=== PATIENT | male | born 1960 | race Caucasian/White ===

== ENCOUNTER 2016-11-02 19:28 | Observation (INO) | payer MEDICARE ==
[~2016-11-02] VITALS: Ht 182.9 cm; Wt 84.0 kg
[~2016-11-02 19:28] MED LIST: ALBU2.5V11 INH; ALBU8.5H5 INH; AMLO5TAB4 PO; ARIP10TA33 PO; ASPI-515 PO; DULO60CA7 PO; FLUT250D INJ; LAMO200T3 PO; LISI40TA PO; LORA-446 PO; METF-163 PO; QUET25TA5 PO; SIMV40TA3 PO; SITA100T PO
[2016-11-02] MEDS ORDERED: LORazepam 1MG TABLET PO ONE (20:00)
[2016-11-02] MEDS ORDERED: LORazepam 1MG TABLET ONE (20:02)
[2016-11-02 20:29] LABS: HEMATOCRIT 40.7 % (39.2-51.8); HEMOGLOBIN 13.7 g/dL (13.7-18.0); WHITE BLOOD COUNT 14.1 x10^3/uL (3.4-10)
[2016-11-02 20:39] LABS: DIFF TOTAL CELLS COUNTED 100 CELL DIFF
[2016-11-02 20:40] LABS: BLOOD UREA NITROGEN 9 mg/dL (7-18)
[2016-11-02 20:43] LABS: ACETAMINOPHEN < 2 mcg/mL (10-30); ASPARTATE AMINO TRANSFERASE 50 U/L (15-37)
[2016-11-02 20:45] LABS: DAU SCREEN DISCLAIMER
[2016-11-02] MEDS ORDERED: METOCLOPRAMIDE 10MG TABLET PO PRN (21:00)
[2016-11-02 21:06] LABS: VERIFY COUNTS? YES
[2016-11-02] MEDS ORDERED: KETOROLAC 30 MG/1 ML ONE (21:23)
[2016-11-02] MEDS ORDERED: POTASSIUM CHLORIDE 20 MEQ TAB.ER.PRT ONE (21:23)
[2016-11-02] MEDS ORDERED: POTASSIUM CHLORIDE 20 MEQ TAB.ER.PRT PO ONE (21:30)
[2016-11-02] MEDS ORDERED: KETOROLAC 30 MG/1 ML IM ONE (21:30)
[2016-11-02 21:49] LABS: PATH.CAST-FLAG NOT PRESENT; SPERM-FLAG NOT PRESENT; SRC-FLAG NOT PRESENT; XTAL-FLAG NOT PRESENT; YLC-FLAG NOT PRESENT
[2016-11-03] MEDS ORDERED: LORazepam 1MG TABLET PO SCH (05:00)
[2016-11-03 05:41] VITALS: BP 131/83
[2016-11-03] MEDS ORDERED: [UNRECOGNIZED DRUG - REMARK] MC SCH (06:00)
[2016-11-03] MEDS: INSULIN ASPART 100 UNITS/ML, PEN SQ-INSULIN SCH ×4 (07:30→20:33)
[2016-11-03 08:00] VITALS: BP 117/71
[2016-11-03] MEDS: metFORMIN 500 MG TABLET PO SCH ×2 (09:07→20:29)
[2016-11-03] MEDS: ASPIRIN 81 MG TABLET EC PO SCH (09:07)
[2016-11-03] MEDS: AMLODIPINE 5 MG TABLET PO SCH (09:07)
[2016-11-03] MEDS: LAMOTRIGINE 200 MG TABLET PO SCH (09:07)
[2016-11-03] MEDS: LISINOPRIL 20 MG TABLET PO SCH (09:07)
[2016-11-03] MEDS: QUETIAPINE 25MG TABLET PO SCH ×4 (09:08→20:29)
[2016-11-03] MEDS: DULOXETINE 30 MG CAPSULE.DR PO SCH (09:08)
[2016-11-03] MEDS: SIMVASTATIN 40 MG TABLET PO SCH (17:58)
[2016-11-03 20:00] VITALS: BP 103/64
[2016-11-03] MEDS: HEPARIN 5,000 UNITS/ML, 1ML SQ SCH (21:00)
[2016-11-04] MEDS ORDERED: LORazepam 1MG TABLET PO PRN (05:00)
[2016-11-04] MEDS: INSULIN ASPART 100 UNITS/ML, PEN SQ-INSULIN SCH ×2 (07:00→10:44)
[2016-11-04 07:47] VITALS: BP 119/74
[2016-11-04] MEDS: metFORMIN 500 MG TABLET PO SCH ×2 (08:26→20:20)
[2016-11-04] MEDS: AMLODIPINE 5 MG TABLET PO SCH (08:27)
[2016-11-04] MEDS: ASPIRIN 81 MG TABLET EC PO SCH (08:27)
[2016-11-04] MEDS: LAMOTRIGINE 200 MG TABLET PO SCH (08:27)
[2016-11-04] MEDS: LISINOPRIL 20 MG TABLET PO SCH (08:27)
[2016-11-04] MEDS: HEPARIN 5,000 UNITS/ML, 1ML SQ SCH ×2 (08:30→20:20)
[2016-11-04] MEDS: QUETIAPINE 25MG TABLET PO SCH ×3 (08:30→20:20)
[2016-11-04] MEDS: DULOXETINE 30 MG CAPSULE.DR PO SCH (08:30)
[2016-11-04] MEDS: SIMVASTATIN 40 MG TABLET PO SCH (17:04)
[2016-11-04 19:43] VITALS: BP 131/77
[2016-11-05 07:45] VITALS: BP 133/75
[2016-11-05] MEDS: ASPIRIN 81 MG TABLET EC PO SCH (08:13)
[2016-11-05] MEDS: metFORMIN 500 MG TABLET PO SCH ×2 (08:13→21:00)
[2016-11-05] MEDS: AMLODIPINE 5 MG TABLET PO SCH (08:13)
[2016-11-05] MEDS: LAMOTRIGINE 200 MG TABLET PO SCH (08:13)
[2016-11-05] MEDS: DULOXETINE 30 MG CAPSULE.DR PO SCH (08:14)
[2016-11-05] MEDS: LISINOPRIL 20 MG TABLET PO SCH (08:14)
[2016-11-05] MEDS: QUETIAPINE 25MG TABLET PO SCH ×3 (08:16→21:00)
[2016-11-05] MEDS: HEPARIN 5,000 UNITS/ML, 1ML SQ SCH ×2 (08:17→21:00)
[2016-11-05] MEDS: SIMVASTATIN 40 MG TABLET PO SCH (17:05)
[2016-11-05 19:34] VITALS: BP 160/89
[2016-11-05] MEDS ORDERED: ALBUTEROL SULFATE 2.5 MG/3 ML NPPB PRN (21:00)
[2016-11-05] MEDS: ACETAMINOPHEN 325 MG TABLET PO PRN (21:00)
[2016-11-06 08:20] VITALS: BP 140/84
[2016-11-06] MEDS: metFORMIN 500 MG TABLET PO SCH ×2 (08:40→20:09)
[2016-11-06] MEDS: DULOXETINE 30 MG CAPSULE.DR PO SCH (08:40)
[2016-11-06] MEDS: ASPIRIN 81 MG TABLET EC PO SCH (08:40)
[2016-11-06] MEDS: LAMOTRIGINE 200 MG TABLET PO SCH (08:41)
[2016-11-06] MEDS: LISINOPRIL 20 MG TABLET PO SCH (08:41)
[2016-11-06] MEDS: AMLODIPINE 5 MG TABLET PO SCH (08:42)
[2016-11-06] MEDS: HEPARIN 5,000 UNITS/ML, 1ML SQ SCH ×2 (08:47→20:11)
[2016-11-06] MEDS: QUETIAPINE 25MG TABLET PO SCH ×3 (08:48→20:09)
[2016-11-06] MEDS: ACETAMINOPHEN 325 MG TABLET PO PRN (18:07)
[2016-11-06] MEDS: SIMVASTATIN 40 MG TABLET PO SCH (18:07)
[2016-11-06 20:00] VITALS: BP 134/78
[2016-11-07] MEDS: ACETAMINOPHEN 325 MG TABLET PO PRN ×2 (06:11→19:44)
[2016-11-07 07:38] VITALS: BP 133/76
[2016-11-07] MEDS: metFORMIN 500 MG TABLET PO SCH (08:55)
[2016-11-07] MEDS: LISINOPRIL 20 MG TABLET PO SCH (08:55)
[2016-11-07] MEDS: ASPIRIN 81 MG TABLET EC PO SCH (08:56)
[2016-11-07] MEDS: DULOXETINE 30 MG CAPSULE.DR PO SCH (08:56)
[2016-11-07] MEDS: AMLODIPINE 5 MG TABLET PO SCH (08:56)
[2016-11-07] MEDS: LAMOTRIGINE 200 MG TABLET PO SCH (08:56)
[2016-11-07] MEDS: TAMSULOSIN 0.4 MG CAP.ER.24H PO SCH (08:56)
[2016-11-07] MEDS: HEPARIN 5,000 UNITS/ML, 1ML SQ SCH ×2 (08:57→21:00)
[2016-11-07] MEDS: QUETIAPINE 25MG TABLET PO SCH ×3 (08:57→21:00)
[2016-11-07] MEDS: SIMVASTATIN 40 MG TABLET PO SCH (18:21)
[2016-11-07 19:22] VITALS: BP 133/80
[2016-11-08] MEDS: metFORMIN 500 MG TABLET PO SCH ×3 (01:13→21:23)
[2016-11-08 08:00] VITALS: BP 141/86
[2016-11-08] MEDS: DULOXETINE 30 MG CAPSULE.DR PO SCH (09:00)
[2016-11-08] MEDS: ASPIRIN 81 MG TABLET EC PO SCH (09:09)
[2016-11-08] MEDS: AMLODIPINE 5 MG TABLET PO SCH (09:10)
[2016-11-08] MEDS: LAMOTRIGINE 200 MG TABLET PO SCH (09:10)
[2016-11-08] MEDS: LISINOPRIL 20 MG TABLET PO SCH (09:11)
[2016-11-08] MEDS: HEPARIN 5,000 UNITS/ML, 1ML SQ SCH ×2 (09:16→21:00)
[2016-11-08] MEDS: QUETIAPINE 25MG TABLET PO SCH ×3 (09:17→21:22)
[2016-11-08] MEDS: TAMSULOSIN 0.4 MG CAP.ER.24H PO SCH (09:18)
[2016-11-08] MEDS: SIMVASTATIN 40 MG TABLET PO SCH (18:07)
[2016-11-08 19:45] VITALS: BP 135/71
[2016-11-09 08:00] VITALS: BP 147/88
[2016-11-09] MEDS: HEPARIN 5,000 UNITS/ML, 1ML SQ SCH ×2 (09:00→20:15)
[2016-11-09] MEDS: TAMSULOSIN 0.4 MG CAP.ER.24H PO SCH (09:00)
[2016-11-09] MEDS: QUETIAPINE 25MG TABLET PO SCH ×3 (09:00→20:13)
[2016-11-09] MEDS: ASPIRIN 81 MG TABLET EC PO SCH (09:26)
[2016-11-09] MEDS: DULOXETINE 30 MG CAPSULE.DR PO SCH (09:26)
[2016-11-09] MEDS: LISINOPRIL 20 MG TABLET PO SCH (09:26)
[2016-11-09] MEDS: LAMOTRIGINE 200 MG TABLET PO SCH (09:26)
[2016-11-09] MEDS: AMLODIPINE 5 MG TABLET PO SCH (09:26)
[2016-11-09] MEDS: metFORMIN 500 MG TABLET PO SCH ×2 (09:27→20:13)
[2016-11-09] MEDS ORDERED: FLU VACC QS2017-18 (36MOS+) UP/PF 0.5 ML IM-VACC ONE (16:00)
[2016-11-09] MEDS: SIMVASTATIN 40 MG TABLET PO SCH (17:32)
[2016-11-09 19:30] VITALS: BP 120/79
[2016-11-10 08:20] VITALS: BP 153/86
[2016-11-10] MEDS: HEPARIN 5,000 UNITS/ML, 1ML SQ SCH (09:00)
[2016-11-10] MEDS: QUETIAPINE 25MG TABLET PO SCH (09:00)
[2016-11-10] MEDS: DULOXETINE 30 MG CAPSULE.DR PO SCH (09:00)
[2016-11-10] MEDS: ASPIRIN 81 MG TABLET EC PO SCH (09:35)
[2016-11-10] MEDS: LAMOTRIGINE 200 MG TABLET PO SCH (09:35)
[2016-11-10] MEDS: AMLODIPINE 5 MG TABLET PO SCH (09:35)
[2016-11-10] MEDS: metFORMIN 500 MG TABLET PO SCH (09:36)
[2016-11-10] MEDS: LISINOPRIL 20 MG TABLET PO SCH (09:37)
[2016-11-10] MEDS: TAMSULOSIN 0.4 MG CAP.ER.24H PO SCH (09:37)
== END 2016-11-10 14:37 | disposition home or self-care (01) ==
LOC: ED 22:20 → INTOOBSV 11-03 04:54 → EDIP 11-03 04:54 → 3E 11-03 05:38
PROVIDERS: ADMIT Internal Medicine; ATTEND Internal Medicine
DX: R45.851 Suicidal ideations (principal); E87.6 Hypokalemia; J45.909 Unspecified asthma, uncomplicated; I10 Essential (primary) hypertension; E11.9 Type 2 diabetes mellitus without complications; F32.9 Major depressive disorder, single episode, unspecified; F20.9 Schizophrenia, unspecified; F22 Delusional disorders; F41.1 Generalized anxiety disorder
CPT/HCPCS: 36415; 80053; 80307; 80329; 81001; 82962; 85025; 90471; 90686; 94640; 96372; 99285; G0378; J1885; J7613; G0479; G0480

== ENCOUNTER 2016-11-15 02:18 | Emergency (ER) | payer MEDICARE ==
[~2016-11-15] VITALS: Ht 182.9 cm; Wt 87.1 kg
[2016-11-15] MEDS ORDERED: DULOXETINE 30 MG CAPSULE.DR PO ONE (02:31)
[2016-11-15 03:38] VITALS: BP 143/82
== END 2016-11-15 03:39 | disposition home or self-care (01) ==
LOC: ED 02:57
DX: Z76.0 Encounter for issue of repeat prescription (principal); E11.9 Type 2 diabetes mellitus without complications; I10 Essential (primary) hypertension; J45.909 Unspecified asthma, uncomplicated; F41.9 Anxiety disorder, unspecified; F32.9 Major depressive disorder, single episode, unspecified
CPT/HCPCS: 99283

== ENCOUNTER 2016-11-15 23:15 | Observation (INO) | payer MEDICARE ==
[~2016-11-15] VITALS: Ht 182.9 cm; Wt 86.2 kg
[2016-11-15 23:50] LABS: HEMOGLOBIN 13.3 g/dL (13.7-18.0); WHITE BLOOD COUNT 12.7 x10^3/uL (3.4-10)
[2016-11-16 00:04] LABS: BLOOD UREA NITROGEN 12 mg/dL (7-18)
[2016-11-16 00:12] LABS: ACETAMINOPHEN < 2 mcg/mL (10-30)
[2016-11-16 01:26] LABS: DAU SCREEN DISCLAIMER
[2016-11-16] MEDS ORDERED: ONDANSETRON ODT 4 MG PO PRN (01:30)
[2016-11-16] MEDS ORDERED: DOCUSATE 100 MG CAPSULE PO PRN (01:30)
[2016-11-16] MEDS ORDERED: ZIPRASIDONE 20MG CAPSULE PO PRN (01:30)
[2016-11-16] MEDS ORDERED: LORazepam 1MG TABLET PO SCH (01:30)
[2016-11-16] MEDS ORDERED: ZIPRASIDONE 20 MG INJ IM PRN (01:30)
[2016-11-16] MEDS: ALBUTEROL SULFATE INH SCH ×2 (01:30→05:30)
[2016-11-16] MEDS: QUETIAPINE 25MG TABLET PO SCH ×4 (01:30→20:42)
[2016-11-16] MEDS ORDERED: DIPHENHYDRAMINE 50 MG CAPSULE PO PRN (01:30)
[2016-11-16 02:22] VITALS: BP 168/100
[2016-11-16] MEDS ORDERED: INSULIN REGULAR 100 UNITS/ML, 3ML VIAL SQ-INSULIN SCH (07:00)
[2016-11-16 07:40] VITALS: BP 154/97
[2016-11-16] MEDS: LAMOTRIGINE 200 MG TABLET PO SCH (08:34)
[2016-11-16] MEDS: SITAGLIPTIN 50MG TABLET PO SCH (08:34)
[2016-11-16] MEDS: ASPIRIN 81 MG TABLET EC PO SCH (08:34)
[2016-11-16] MEDS: AMLODIPINE 5 MG TABLET PO SCH (08:34)
[2016-11-16] MEDS: metFORMIN 500 MG TABLET PO SCH ×2 (08:35→20:42)
[2016-11-16] MEDS: DULOXETINE 30 MG CAPSULE.DR PO SCH (08:35)
[2016-11-16] MEDS: LISINOPRIL 20 MG TABLET PO SCH (08:35)
[2016-11-16] MEDS ORDERED: ALBUTEROL SULFATE 2.5MG/0.5ML NPPB PRN (09:30)
[2016-11-16] MEDS: ENOXAPARIN 40 MG/0.4 ML SQ SCH (16:00)
[2016-11-16 19:08] VITALS: BP 133/82
[2016-11-16] MEDS: SIMVASTATIN 40 MG TABLET PO SCH (20:42)
[2016-11-16] MEDS: ACETAMINOPHEN 325 MG TABLET PO PRN (21:19)
[2016-11-17 08:00] VITALS: BP 143/86
[2016-11-17] MEDS: DULOXETINE 30 MG CAPSULE.DR PO SCH (08:53)
[2016-11-17] MEDS: ASPIRIN 81 MG TABLET EC PO SCH (08:54)
[2016-11-17] MEDS: metFORMIN 500 MG TABLET PO SCH ×2 (08:54→20:10)
[2016-11-17] MEDS: SITAGLIPTIN 50MG TABLET PO SCH (08:55)
[2016-11-17] MEDS: LAMOTRIGINE 200 MG TABLET PO SCH (08:55)
[2016-11-17] MEDS: AMLODIPINE 5 MG TABLET PO SCH (08:55)
[2016-11-17] MEDS: QUETIAPINE 25MG TABLET PO SCH ×2 (08:56→20:10)
[2016-11-17] MEDS: LISINOPRIL 20 MG TABLET PO SCH (08:56)
[2016-11-17] MEDS: ENOXAPARIN 40 MG/0.4 ML SQ SCH (16:00)
[2016-11-17] MEDS: ACETAMINOPHEN 325 MG TABLET PO PRN (16:51)
[2016-11-17] MEDS ORDERED: LORazepam 1MG TABLET PO PRN (17:30)
[2016-11-17 19:18] VITALS: BP 136/84
[2016-11-17] MEDS: SIMVASTATIN 40 MG TABLET PO SCH (21:00)
[2016-11-18 07:30] VITALS: BP 133/84
[2016-11-18] MEDS ORDERED: ASPIRIN 81 MG TABLET EC PO SCH (09:00)
[2016-11-18] MEDS: SITAGLIPTIN 50MG TABLET PO SCH (09:00)
[2016-11-18] MEDS: QUETIAPINE 25MG TABLET PO SCH (09:00)
[2016-11-18] MEDS: LAMOTRIGINE 200 MG TABLET PO SCH (09:01)
[2016-11-18] MEDS: LISINOPRIL 20 MG TABLET PO SCH (09:01)
[2016-11-18] MEDS: AMLODIPINE 5 MG TABLET PO SCH (09:02)
[2016-11-18] MEDS: metFORMIN 500 MG TABLET PO SCH (09:03)
[2016-11-18] MEDS: DULOXETINE 30 MG CAPSULE.DR PO SCH (09:03)
== END 2016-11-18 12:14 ==
LOC: ED 23:59 → SUATTDRO 11-16 01:21 → EDIP 11-16 01:25 → 3E 11-16 02:10
PROVIDERS: ADMIT Family Medicine; ATTEND Family Medicine
DX: R45.851 Suicidal ideations (principal); N40.0 Benign prostatic hyperplasia without lower urinary tract symptoms; J45.909 Unspecified asthma, uncomplicated; F32.9 Major depressive disorder, single episode, unspecified; F41.9 Anxiety disorder, unspecified; E11.9 Type 2 diabetes mellitus without complications; I10 Essential (primary) hypertension; Z91.14 Patient's other noncompliance with medication regimen; Z91.19 Patient's noncompliance with other medical treatment and regimen
CPT/HCPCS: 36415; 80048; 80307; 80329; 82040; 82962; 85025; 99285; G0378; G0479; G0480

== ENCOUNTER 2019-09-22 18:56 | Emergency (ER) | payer MEDICARE, MEDICAID ==
[~2019-09-22] VITALS: Ht 182.9 cm; Wt 88.2 kg
[~2019-09-22 18:56] MED LIST changes: +SIMV40TA20 PO; -SIMV40TA3 PO
--- NOTE | 2019-09-22 19:08 | NUR ---
urine collected and tubed in triage.
[2019-09-22 19:18] LABS: MICROSCOPIC NOT IND
[2019-09-22 21:35] LABS: BASOPHILS # (AUTO) 0.03 x10^3/uL (0-0.1); BASOPHILS % (AUTO) 0 % (0-1); EOSINOPHILS # (AUTO) 0.21 x10^3/uL (0-0.4); EOSINOPHILS % (AUTO) 3 % (1-7); LYMPHOCYTES # (AUTO) 1.96 x10^3/uL (1-3.4); LYMPHOCYTES % (AUTO) 24 % (22-44); MD NO; MEAN CORPUSCULAR HEMOGLOBIN 30.9 pg (27.5-34.5); MEAN CORPUSCULAR HGB CONC 33.1 g/dL (33.2-36.2); MEAN CORPUSCULAR VOLUME 93.3 fL (81-97); MEAN PLATELET VOLUME 7.1 fL (7.4-10.4); MONOCYTES # (AUTO) 0.89 x10^3/uL (0.2-0.8); MONOCYTES % (AUTO) 11 % (2-9); NEUTROPHILS # (AUTO) 4.96 x10^3/uL (1.8-6.8); NEUTROPHILS % (AUTO) 62 % (42-75); PLATELET COUNT 281 x10^3/uL (130-400); RED BLOOD COUNT 4.05 x10^6/uL (4.38-5.82)
[2019-09-22 21:37] LABS: ALBUMIN 3.4 g/dL (3.4-5.0); ANION GAP 6 mmol/L (5-15); CALCIUM 8.2 mg/dL (8.5-10.1); CHLORIDE 107 mmol/L (98-107); CREATININE 0.85 mg/dL (0.7-1.3)
--- NOTE | 2019-09-22 21:55 | NUR ---
Brianda RN: attempted to D/C pt on behalf of primary RN, pt requesting that Tamsulosis dosage be increased to 0.8mg. Dr. Bradford notified
[2019-09-22 22:12] VITALS: BP 150/75
== END 2019-09-22 22:16 | disposition home or self-care (01) ==
LOC: ED 19:26
DX: R30.0 Dysuria (principal); F33.9 Major depressive disorder, recurrent, unspecified; I10 Essential (primary) hypertension; E11.9 Type 2 diabetes mellitus without complications; J45.909 Unspecified asthma, uncomplicated
CPT/HCPCS: 36415; 80048; 81003; 82040; 85025; 99283

== ENCOUNTER 2019-10-01 03:20 | Emergency (ER) | payer MEDICARE, MEDICAID ==
[~2019-10-01] VITALS: Ht 182.9 cm; Wt 83.1 kg
--- NOTE | 2019-10-01 04:24 | NUR ---
PT MOVED TO ROOM 2.
--- NOTE | 2019-10-01 04:31 | NUR ---
PT SLEEPING ON GURNEY, RESPIRATIONS EVEN AND UNLABORED.
[2019-10-01 04:41] VITALS: BP 141/82
[2019-10-01] MEDS ORDERED: TAMSULOSIN 0.4 MG CAP.ER.24H ONE (04:53)
[2019-10-01] MEDS ORDERED: TAMSULOSIN 0.4 MG CAP.ER.24H PO ONE (05:00)
[2019-10-01 05:17] LABS: MICROSCOPIC NOT IND
[2019-10-01 05:29] LABS: AMPHETAMINE SCREEN, URINE Positive (Negative); BARBITURATE SCREEN, URINE Negative (Negative); BENZODIAZEPINE SCREEN, URINE Negative (Negative); CANNABINOID SCREEN, URINE Negative (Negative); COCAINE SCREEN, URINE Negative (Negative); METHADONE SCREEN, URINE Negative (Negative); OPIATE SCREEN, URINE Negative (Negative)
--- NOTE | 2019-10-01 05:32 | NUR ---
PT REMAINS SLEEPING IN BED, RESPIRATIONS EVEN AND UNLABORED. PROVIDED WITH FOOD, PER ERP REQUEST.
[2019-10-01 05:53] LABS: BASOPHILS # (AUTO) 0.02 x10^3/uL (0-0.1); BASOPHILS % (AUTO) 0 % (0-1); EOSINOPHILS # (AUTO) 0.22 x10^3/uL (0-0.4); EOSINOPHILS % (AUTO) 3 % (1-7); LYMPHOCYTES # (AUTO) 1.91 x10^3/uL (1-3.4); LYMPHOCYTES % (AUTO) 24 % (22-44); MD NO; MEAN CORPUSCULAR HEMOGLOBIN 30.5 pg (27.5-34.5); MEAN CORPUSCULAR HGB CONC 32.6 g/dL (33.2-36.2); MEAN CORPUSCULAR VOLUME 93.4 fL (81-97); MEAN PLATELET VOLUME 7.4 fL (7.4-10.4); MONOCYTES # (AUTO) 0.95 x10^3/uL (0.2-0.8); MONOCYTES % (AUTO) 12 % (2-9); NEUTROPHILS # (AUTO) 4.72 x10^3/uL (1.8-6.8); NEUTROPHILS % (AUTO) 60 % (42-75); PLATELET COUNT 285 x10^3/uL (130-400)
[2019-10-01 05:56] LABS: ALBUMIN 4.2 g/dL (3.4-5.0); ANION GAP 8 mmol/L (5-15); CALCIUM 9.1 mg/dL (8.5-10.1); CHLORIDE 105 mmol/L (98-107)
[2019-10-01 05:57] LABS: CREATININE 1.13 mg/dL (0.7-1.3)
[2019-10-01 05:59] LABS: SALICYLATE LEVEL < 1.7 mg/dL (2.8-20.0)
--- NOTE | 2019-10-01 06:09 | NUR ---
PT SLEEPING, EYES CLOSED, RESPIRATIONS EVEN AND UNLABORED.
--- NOTE | 2019-10-01 06:14 | NUR ---
ERP TO BEDSIDE.
== END 2019-10-01 06:29 | disposition home or self-care (01) ==
LOC: ED 05:24
DX: F33.9 Major depressive disorder, recurrent, unspecified (principal); N40.0 Benign prostatic hyperplasia without lower urinary tract symptoms; R45.851 Suicidal ideations; Z76.0 Encounter for issue of repeat prescription; E11.9 Type 2 diabetes mellitus without complications; J45.909 Unspecified asthma, uncomplicated; I10 Essential (primary) hypertension
CPT/HCPCS: 36415; 80048; 80307; 81003; 82040; 85025; 99283